=== PATIENT | female | born 1990 | race Caucasian/White ===

== ENCOUNTER 2024-05-09 06:26 | Emergency (ER) | payer BC ==
[~2024-05-09] VITALS: Ht 170.2 cm; Wt 61.2 kg
[2024-05-09 06:32] VITALS: BP_SYST 120; PULSE 107; RESP 18; TEMP 98.6; O2SAT 97
[2024-05-09] MEDS ORDERED: PRED50TA PO (07:20)
[2024-05-09] MEDS ORDERED: PENI500T PO (07:20)
[2024-05-09 07:38] VITALS: BP_SYST 120; PULSE 107; RESP 18; TEMP 98.6; O2SAT 97
== END 2024-05-09 07:36 | disposition home or self-care (01) ==
LOC: SED 06:26
DX: K12.2 Cellulitis and abscess of mouth (principal); R50.9 Fever, unspecified; Z79.899 Other long term (current) drug therapy
CPT/HCPCS: 99283